=== PATIENT | female | born 1965 | race Caucasian/White ===

== ENCOUNTER → 2021-05-12 14:33 | Outpatient (BNVA) | payer OTHER, SELFPAY | PROVIDERS: PCP Internal Medicine; Visit Provider Internal Medicine ==

== ENCOUNTER 2021-06-25 06:11 | Outpatient (REF) | payer OTHER, SELFPAY ==
--- NOTE | ~2021-06-25 | FL_ITS ---
EXAMINATION: XR FL WITH IMAGES CLINICAL INFORMATION: Radiculopathy. COMPARISON: None TECHNIQUE: Fluoroscopy performed by Dr. Remy Curry. Fluoroscopy Time: 2.1 minutes. DAP: 14.3 Gycm2. Images: 4. FINDINGS: Images demonstrate what appears to be epidural injection of contrast at the level of the T11 and T12 interspace. FL/FL guidance in treatment room IMPRESSION: Epidural injection.
== END 2021-06-25 06:12 | disposition home or self-care (01) ==
LOC: HO.RADIR 06:11
PROVIDERS: Visit Provider Internal Medicine
DX: M47.24 Other spondylosis with radiculopathy, thoracic region (principal)
CPT/HCPCS: 62321; J1040

== ENCOUNTER → 2021-07-21 09:43 | Outpatient (BNVA) | payer OTHER, SELFPAY | PROVIDERS: PCP Internal Medicine; Visit Provider Internal Medicine ==